=== PATIENT | female | born 1980 | race Caucasian/White ===

== ENCOUNTER 2018-01-29 07:38 | Emergency (ER) | payer OTHER ==
[~2018-01-29] VITALS: Ht 165.1 cm; Wt 63.5 kg
[2018-01-29 07:41] VITALS: BP 102/67
[2018-01-29] MEDS ORDERED: AMOXICILLIN500 M3 PO (08:05)
[2018-01-29] MEDS ORDERED: CLINDAMYCIN HC300 M1 PO (08:32)
--- NOTE | 2018-01-29 08:33 | ED GENERAL ADULT ---
History of Present Illness General Chief Complaint: Sore Throat, Dental Pain Stated Complaint: DENTAL PAIN Source: patient, family Exam Limitations: no limitations Vital Signs & Intake/Output Vital Signs & Intake/Output Vital Signs Date Time Temp Pulse Resp B/P B/P Pulse O2 O2 Flow FiO2 Mean Ox Delivery Rate 01/29 0751 98 Room Air 01/29 0741 96.4 83 20 102/67 100 Room Air Allergies Coded Allergies: No Known Allergies (01/29/18) Reconcile Medications Amoxicillin (Unknown Strength) TABLET (Unknown Dose) PO BID ANTIBIOTIC, INFECTION (Reported) Clindamycin HCl 300 MG CAPSULE 1 CAP PO TID dental infection Triage Note: PT TO ED C/O LEFT SIDED FACIAL PAIN X 1.5 MONTHS. PT HAS APPT TO HAVE 3 TEETH PULLED ON SATURDAY. STATES SHE THINKS SHE HAS AN INFECTION. Triage Nurses Notes Reviewed? yes : No Patient currently breastfeeds: No HPI: Patient is a 37-year-old female with no significant past medical history but with significant dental history including left lower rearmost molar extraction done recently, as well as a known infection deep to the left upper rearmost molar's, planned for extraction soon, who presents today for dental pain. She has been on amoxicillin for almost 2 months ago, but she believes that the infection has been refractory to this medication. Upon my initial encounter the patient is clearly uncomfortable, but nontoxic. Past History Travel History Traveled to [place] past 21 day No Medical History Any Pertinent Medical History? see below for history Neurological: NONE EENT: NONE Cardiovascular: NONE Respiratory: asthma Gastrointestinal: NONE Hepatic: NONE Renal: NONE Musculoskeletal: NONE Psychiatric: NONE Endocrine: NONE Blood Disorders: NONE Cancer(s): NONE Tetanus Vaccine: 12/23/17 Surgical History Surgical History: none Psychosocial History What is your primary language Persian Tobacco Use: Current Daily Use Daily Tobacco Use Amount/Type: => 5 Cigarettes daily ETOH Use: denies use Illicit Drug Use: denies illicit drug use Family History Hx Contributory? No Review of Systems Review of Systems Constitutional: Reports: see HPI. Denies: chills, diaphoresis, fever, malaise. EENTM: Reports: see HPI, mouth pain, tooth pain. Respiratory: Denies: short of breath, stridor, wheezing. Cardiovascular: Denies: palpitations. Physical Exam Physical Exam General Appearance: well developed/nourished, alert, awake Comments: HEENT: No sign of external swelling, no mastoid tenderness, no abscess visible externally. Dental: Over the left sided posterior upper molars there is significant tenderness but no fluctuance or drainage. Rearmost lower left-sided molar is surgically absent. Ophtho: Extraocular muscles are intact. The sclera are noninjected, and there is no obvious discharge. Neck: No signs of trauma or asymmetry to the neck. Respiratory: The patient exhibits no signs of labored breathing. Cardiac: Non-tachycardic. GI: No gross abdominal distention. : Deferred Neuro: The patient is oriented to person, place, time, and situation, with no obvious focal motor deficits. Cranial nerves II through XII are intact, and gait is normal. Behavioral: Calm and cooperative Dermatologic: Dermatologic examination reveals no obvious rashes or exanthems. Core Measures ACS in differential dx? No CVA/TIA Diagnosis: No Sepsis Present: No Sepsis Focused Exam Completed? No Progress Differential Diagnoses I considered the following diagnoses in my evaluation of the patient: Dental abscess, deep space abscess, mastoiditis, Titus's angina, periapical abscess Plan of Care: I find no evidence of deep space tissue infection. I feel that the patient likely has a periapical abscess or other deep dental process. She has been on amoxicillin, but given the failure of this therapy I have changed her to clindamycin and prescribed that to her pharmacy. She has plans to follow-up with her dentist in 48 hours, and I feel that this is adequate. No further workup is necessary today, however did give the patient copious return instructions should her symptoms or overall condition worsen in any way. Discharged home in stable condition. Initial ED EKG: none Departure Departure Time of Disposition: 828 Disposition: HOME OR SELF CARE Condition: Stable Clinical Impression Primary Impression: Dental infection Referrals: Patient Has No Primary Care Dr (PCP/Family) Additional Instructions: Please take the clindamycin we prescribed and see your dentist Saturday as planned for definitive care. Departure Forms: Customer Survey General Discharge Information Prescriptions: Current Visit Scripts Clindamycin HCl 1 CAP PO TID #30 CAP Critical Care Note Critical Care Note Critical Care Time: non-applicable
== END 2018-01-29 08:45 ==
LOC: ERH 07:38
DX: K04.7 Periapical abscess without sinus (principal)